=== PATIENT | female | born 1930 | race Two or more races ===

== ENCOUNTER 2017-12-12 07:15 | Outpatient (CLI) | payer OTHER | END 2017-12-12 08:00 | disposition home or self-care (01) | LOC: NUCLEAR 07:15 | DX: I20.0 Unstable angina (principal); I11.9 Hypertensive heart disease without heart failure; I25.10 Atherosclerotic heart disease of native coronary artery without angina pectoris; E78.2 Mixed hyperlipidemia | CPT/HCPCS: 78452; 93017; A9500 ==